=== PATIENT | female | born 1945 | race Caucasian/White ===

== ENCOUNTER 2017-10-31 00:13 | Day surgery (SDC) | payer MEDICARE, MEDICAID ==
[2014-08-06 13:09] VITALS: Ht 157.5 cm; Wt 81.2 kg
[~2017-10-31] VITALS: Ht 157.5 cm; Wt 81.2 kg
[2017-10-31] VITALS (9 sets, daily range): BP systolic 103–133; BP diastolic 51–75
[~2017-10-31 00:13] MED LIST: ACE500 PO; ACET-2043 PO; ACET500T68 PO; ALB17R INH; ARTO15 OU; ASC500 PO; ASCO500C9 PO; AZEL6DRO9 OP; AZIT500T47 PO; BUPR-121 PO; BUPR-123 PO; BUPR-124 PO; BUPR-163 PO; CALC250T7 PO; CALC600T72 PO; CEF300 PO; CEFU250 PO; CEP500 PO; CHOL10005 PO; CLOZ100 PO; CLOZ100T14 PO; CLOZ50TA PO; CYA1000I IM; DOCU-299 PO; ESOM40CA42 PO; FER325 PO; FOR12R INH; GAB100 PO; GAB300 PO; GLUC500C29 PO; GUAI600T57 PO; GUALA600 PO; HYDROCODONE PO; IBU600 PO; LETPT PO; LEVO500T83 PO; LEVO75TA68 PO; LEVO75TA73 PO; LOP2 PO; LOPE-147 PO; LOPE2CAP39 PO; LOR5 PO; LOR5/325 PO; MELO-149 PO; MELO-150 PO; MELO-207 PO; MEMA10TA19 PO; MEMA10TA3 PO; MIR PO; MULT-885 PO; MULT1CAP41 PO; OMEP-125 PO; OMEP-153 PO; OXYGEN INH; PAN40 PO; PANTOPRAZOLE PO; POLY17PO25 PO; PSYL1PAC23 PO; SERT25TA87 PO; SERT25TA90 PO; SULF-198 PO; SYSTANODPT OP; TIO18R IH; TIO18R INH; TRAM-420 PO; [UNRECOGNIZED DRUG - CODE] PO; [UNRECOGNIZED DRUG - CODE] PO; [UNRECOGNIZED DRUG - CODE] PO; oxygen
[2017-10-31 06:15] LABS: PLATELET COUNT, AUTOMATED 183 K/uL (150-450)
[2017-10-31] MEDS ORDERED: MIDAZOLAM 2 MG/2 ML VIAL IVP PRN (06:30)
[2017-10-31] MEDS ORDERED: LIDOCAINE/SOD BICARB 8.4% SYR ID ONE (06:30)
[2017-10-31] MEDS ORDERED: NORMOSOL R SOLN(*) 1000 ML BAG 1,000 ML IV PRN (06:30)
[2017-10-31] MEDS ORDERED: ROPIVACAINE 0.2% 20 ML VIAL ONE (06:54)
[2017-10-31] MEDS ORDERED: fentaNYL CITR 100 MCG/2 ML AMP ONE (06:56)
[2017-10-31] MEDS ORDERED: LIDOCAINE MPF 1% 5 ML VIAL ONE (06:57)
[2017-10-31] MEDS ORDERED: DEXAMETHASONE SOD PHOS 10MG/ML ONE (06:57)
[2017-10-31] MEDS ORDERED: ONDANSETRON 4 MG/2 ML VIAL ONE (06:57)
[2017-10-31] MEDS ORDERED: PROPOFOL EMUL(*) 10MG/ML 20 ML 20 ML ONE (06:57)
[2017-10-31] MEDS ORDERED: DEXAMETHASONE SOD 4 MG/ML VIAL ONE (06:58)
[2017-10-31] MEDS ORDERED: LIDOCAINE 2% JELLY 5 ML TUBE ONE (06:59)
[2017-10-31] MEDS ORDERED: NS 0.9% IRRIGATION 1000ML PLCT IR ONE (07:41)
--- NOTE | 2017-10-31 08:11 | Post Operative Progress Note ---
Post Operative Progress Note Date: Oct 31, 2017 Time: 08:09 Surgeon: wendy Anesthesia: dr silva Pre-Op Diagnosis: 3.2 cm by 2.9 cm skin lesion inferior to the medial head of the right clavicle Post-Op Diagnosis: same Procedure(s): wide excision of skin tumor KENJI SCHMITZ MD Oct 31, 2017 08:11
[2017-10-31] MEDS ORDERED: HYDR-4309 PO (08:12)
--- NOTE | 2017-10-31 08:13 | Short(Outpt) Discharge Summary ---
Discharge Summary Reason for Hosp/Final Diag: (1) Skin cancer of trunk Hospital Course & Plan: wide excision of 3.2 cm by 2.9 cm skin lesion right anterior chest Departure Discharge to: Home Discharge Instructions Home Meds Active Scripts Hydrocodone Bit/Acetaminophen (NORCO 5-325 TABLET) 1 Each Tablet, 1 EACH PO Q4H Y for PAIN, #20 TAB Prov:KENJI SCHMITZ MD 10/31/17 Reported Medications Tiotropium [place] (SPIRIVA) 18 Mcg/Cap Inh, 18 MCG INH PRN, INH 10/26/17 Omeprazole (OMEPRAZOLE) 20 Mg Capsule.dr, 1 CAP PO QDAY, CAP 10/26/17 Memantine HCl 10 MG (Memantine HCl 10 MG) 10 Mg Tablet, 10 MG PO BID 10/26/17 Meloxicam (MOBIC) 15 Mg Tablet, 15 MG PO QDAY 10/26/17 Letrozole (FEMARA) 2.5 Mg Tab, 2.5 MG PO DAILY, TAB 10/26/17 Cholecalciferol (Vitamin D3) (VITAMIN D3) 1,000 Unit Tablet, 1000 UNIT PO DAILY , TAB 10/26/17 Bupropion Hcl (BUPROPION XL) 150 Mg Tab.er.24h, 150 MG PO QDAY, #10 TAB 10/26/17 Azelastine Hcl (AZELASTINE HCL) 6 Ml Drops, 6 ML OP 10/26/17 Acetaminophen (TYLENOL EXTRA STRENGTH) 500 Mg Tablet, 500 MG PO Q4H Y for PAIN, TAB 09/18/17 Tramadol Hcl (TRAMADOL HCL) 50 Mg Tablet, 50 MG PO HS Y for PAIN, TAB 09/18/17 Levothyroxine Sodium (LEVOTHYROXINE SODIUM) 75 Mcg Tablet, 75 MCG PO QDAY, TAB 09/18/17 Sertraline Hcl (SERTRALINE HCL) 25 Mg Tablet, 1 TAB PO QDAY, TAB 09/18/17 Gabapentin (Neurontin) 300 Mg Cap, 300 MG PO TID, 0 Refills 02/08/11 Clozapine (Clozapine) 50 Mg Tablet, 100 MG PO QDAY, 0 Refills 02/08/11 Diet: Regular Activity: As Tolerated Special Instructions: remove bandage and shower to see me in one week, call [phone] for apt KENJI SCHMITZ MD Oct 31, 2017 08:13
--- NOTE | 2017-10-31 14:06 | NACHTIGAL H&P ---
DATE OF ADMISSION: October 31, 2017 CHIEF COMPLAINT Lesion on the right clavicular area. 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 She presents with a large skin lesion over the right medial clavicle. It is difficult to get any history from this patient as far as how long it has been there. We had difficulty with her initial schedule because of finding a person to sign for her surgical permit, but that has been taken care of. She is admitted at this time for excision of this lesion. PAST MEDICAL HISTORY/OPERATIONS She had excision of a skin cancer of the lip and a right mastectomy. ALLERGIES PENICILLIN. CURRENT MEDICATIONS 1. Vitamin C. 2. Spiriva inhaler. 3. Omeprazole 20 mg daily. 4. Namenda 10 mg b.i.d. 5. Multivitamin. 6. Mobic 15 mg a day. 7. Gabapentin 300 mg b.i.d. 8. Femara 2.5 mg daily. 9. Sertraline 25 mg nightly. 10. Cholecalciferol 1000 units a day. 11. Calcium bupropion 150 mg daily. 12. Azelastine ophthalmic drops twice a day. REVIEW OF SYSTEMS Significant for a history of schizophrenia, dementia, bipolar disorder. She also has hypertension and COPD. PHYSICAL EXAMINATION LUNGS: Clear. HEART: Regular rhythm. SKIN: She has a 2.3 cm x 1.3 cm raised, ulcerated, firm skin lesion just inferior the medial clavicle on the right. IMPRESSION Skin lesion of the right chest. PLAN This is highly suspicious for cancer. We will excised this with a margin of normal tissue and reapproximate it. [facility]
--- NOTE | 2017-10-31 14:34 | OPERATIVE REPORT 1 ---
EVENT DATE: October 31, 2017 SURGEON: Du Black MD ANESTHESIOLOGIST: Jose Bautista MD ANESTHESIA: General. PREOPERATIVE DIAGNOSIS A 3.2 cm x 2.9 cm, raised, fungating skin lesion inferior to the medial head of the right scapula. POSTOPERATIVE DIAGNOSIS A 3.2 cm x 2.9 cm, raised, fungating skin lesion inferior to the medial head of the right scapula. PROCEDURE PERFORMED Wide excision of skin lesion, right anterior chest. DESCRIPTION OF PROCEDURE The patient was placed in the supine position and given general anesthetic. Her right chest and neck were prepped and draped in a sterile fashion. An elliptical incision following skin lines was made with a 0.5 cm margin. We carried it down through skin and subcutaneous tissue all the way down to the level of the fascia and excised this skin lesion. We then freed up the flaps with electrocautery and the subcutaneous tissue. We injected 20 mL of 0.2% ropivacaine in the muscle and subcutaneous tissues. The subcutaneous tissues were reapproximated with 2-0 chromic. The skin was closed with interrupted 4-0 Maxon,and Dermabond was placed. The patient tolerated the procedure well with no apparent complication. LUDWIG
== END 2017-10-31 08:53 | disposition home or self-care (01) ==
LOC: OR 00:13
PROVIDERS: ATTEND Surgery
DX: C41.3 Malignant neoplasm of ribs, sternum and clavicle (principal)
CPT/HCPCS: 23140; 36415; 85025; 88305; A9270; J1100; J2001; J2405; J2704; J2795; J3010

== ENCOUNTER → 2017-11-24 | Outpatient (CLI) | payer MEDICARE, MEDICAID ==
[2014-08-06 13:09] VITALS: BMI 33.0
[~2017-11-24] MED LIST changes: +HYDR-4309 PO
[2017-11-24 14:56] LABS: LDL CHOLESTEROL 34 mg/dl
== END ==
LOC: LAB 13:45
PROVIDERS: ATTEND Family Medicine
DX: E03.9 Hypothyroidism, unspecified (principal); F31.9 Bipolar disorder, unspecified; F32.9 Major depressive disorder, single episode, unspecified; J44.1 Chronic obstructive pulmonary disease with (acute) exacerbation; K21.9 Gastro-esophageal reflux disease without esophagitis; L57.0 Actinic keratosis; M12.9 Arthropathy, unspecified; M54.30 Sciatica, unspecified side; S23.9XXA Sprain of unspecified parts of thorax, initial encounter; Z79.891 Long term (current) use of opiate analgesic; Z85.3 Personal history of malignant neoplasm of breast; F02.81 Dementia in other diseases classified elsewhere, unspecified severity, with behavioral disturbance; F91.9 Conduct disorder, unspecified; F20.9 Schizophrenia, unspecified
CPT/HCPCS: 36415; 82040; 82310; 82374; 82435; 82465; 82565; 82947; 83718; 84100; 84132; 84295; 84478; 84520

== ENCOUNTER → 2017-12-22 | Outpatient (CLI) | payer MEDICARE, MEDICAID ==
[2014-08-06 13:09] VITALS: BMI 33.0
== END ==
LOC: ZZSENDIN 11:48
PROVIDERS: ATTEND Family Medicine
DX: F31.9 Bipolar disorder, unspecified (principal)
CPT/HCPCS: 85027

== ENCOUNTER → 2017-12-28 | Outpatient (REF) | payer MEDICARE, MEDICAID ==
[2014-08-06 13:09] VITALS: BMI 33.0
[2017-12-28 14:27] LABS: PLATELET COUNT, AUTOMATED 166 K/uL (150-450)
== END ==
LOC: ZZLCC 10:48
PROVIDERS: ATTEND Family Medicine
DX: E03.9 Hypothyroidism, unspecified (principal)
CPT/HCPCS: 85025

== ENCOUNTER → 2018-01-23 | Outpatient (CLI) | payer MEDICARE, MEDICAID ==
[2014-08-06 13:09] VITALS: BMI 33.0
[2018-01-23 10:06] LABS: PLATELET COUNT, AUTOMATED 144 K/uL (150-450)
== END ==
LOC: LAB 09:31
PROVIDERS: ATTEND Family Medicine
DX: Z79.899 Other long term (current) drug therapy (principal)
CPT/HCPCS: 36415; 85025

== ENCOUNTER → 2018-02-21 | Outpatient (CLI) | payer MEDICARE, MEDICAID ==
[2014-08-06 13:09] VITALS: BMI 33.0
[2018-02-21 10:09] LABS: PLATELET COUNT, AUTOMATED 182 K/uL (150-450)
== END ==
LOC: LAB 09:52
PROVIDERS: ATTEND Family Medicine
DX: Z79.899 Other long term (current) drug therapy (principal)
CPT/HCPCS: 36415; 85025

== ENCOUNTER → 2018-03-23 | Outpatient (CLI) | payer MEDICARE, MEDICAID ==
[2014-08-06 13:09] VITALS: BMI 33.0
[2018-03-23 15:11] LABS: PLATELET COUNT, AUTOMATED 160 K/uL (150-450)
== END ==
LOC: LAB 14:41
PROVIDERS: ATTEND Family Medicine
DX: E03.9 Hypothyroidism, unspecified (principal); Z79.899 Other long term (current) drug therapy; F20.9 Schizophrenia, unspecified; F31.9 Bipolar disorder, unspecified
CPT/HCPCS: 36415; 85025

== ENCOUNTER → 2018-04-26 | Outpatient (CLI) | payer MEDICARE, MEDICAID ==
[2014-08-06 13:09] VITALS: BMI 33.0
[2018-04-26 09:43] LABS: PLATELET COUNT, AUTOMATED 177 K/uL (150-450)
== END ==
LOC: LAB 09:25
PROVIDERS: ATTEND Family Medicine
DX: F20.0 Paranoid schizophrenia (principal); F31.9 Bipolar disorder, unspecified; Z79.899 Other long term (current) drug therapy
CPT/HCPCS: 36415; 85025

== ENCOUNTER → 2018-05-26 | Outpatient (REF) | payer MEDICARE, MEDICAID ==
[2014-08-06 13:09] VITALS: BMI 33.0
[2018-05-26 11:57] LABS: PLATELET COUNT, AUTOMATED 184 K/uL (150-450)
== END ==
LOC: ZZLCC 11:43
PROVIDERS: ATTEND Family Medicine
DX: F20.9 Schizophrenia, unspecified (principal); F31.9 Bipolar disorder, unspecified; E03.9 Hypothyroidism, unspecified; L57.0 Actinic keratosis; Z85.3 Personal history of malignant neoplasm of breast; Z79.899 Other long term (current) drug therapy
CPT/HCPCS: 85025

== ENCOUNTER 2018-06-22 14:51 | Inpatient (IN) | payer MEDICARE, MEDICAID ==
[~2018-06-22] VITALS: Ht 154.9 cm; Wt 70.5 kg
[~2018-06-22 14:51] MED LIST changes: -ASPI-764 PO; -NYST15PO4 TP; -SERT-184 PO
--- NOTE | 2018-06-22 15:16 | ER Report ---
History and Physical Time Seen By MD: 15:15 Hx. of Stated Complaint: FALL AT [facility]F LAST NIGHT, + RIGHT HIP FX PER RADIOLOGY HPI/ROS CHIEF COMPLAINT: hip fx post fall HISTORY OF PRESENT ILLNESS: PT lives in [facility] and is unable to give me a hx secondary to dementia and schizophrenia. Called [facility] and spoke with Zina her nurse. 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 Pt was sitting in her chair and went to get up and fell down onto her side. Pt did not hit her head. Staff was unsure if she tripped on the edge of her walker or if she fell without hitting the walker. PT usually ambulates with walker. Pt currently has no complaints but has obvious pain with any movement of the pelvis. REVIEW OF SYSTEMS: unable to obtain secondary to pts dementia and psych history. Allergies: Coded Allergies: Penicillins (Verified Allergy, Unknown, 06/22/18) Uncoded Allergies: LACTOSE INTOLERANCE (Allergy, Mild, 09/18/17) Home Meds Active Scripts Hydrocodone Bit/Acetaminophen (NORCO 5-325 TABLET) 1 Each Tablet, 1 EACH PO Q4H PRN for PAIN, #20 TAB Prov:KENJI SCHMITZ MD 10/31/17 Reported Medications Tiotropium [place] (SPIRIVA) 18 Mcg/Cap Inh, 18 MCG INH PRN, INH 10/26/17 Omeprazole (OMEPRAZOLE) 20 Mg Capsule.dr, 1 CAP PO QDAY, CAP 10/26/17 Memantine HCl 10 MG (Memantine HCl 10 MG) 10 Mg Tablet, 10 MG PO BID 10/26/17 Meloxicam (MOBIC) 15 Mg Tablet, 15 MG PO QDAY 10/26/17 Letrozole (FEMARA) 2.5 Mg Tab, 2.5 MG PO DAILY, TAB 10/26/17 Cholecalciferol (Vitamin D3) (VITAMIN D3) 1,000 Unit Tablet, 1000 UNIT PO DAILY, TAB 10/26/17 Bupropion Hcl (BUPROPION XL) 150 Mg Tab.er.24h, 150 MG PO QDAY, #10 TAB 10/26/17 Azelastine Hcl (AZELASTINE HCL) 6 Ml Drops, 6 ML OP 10/26/17 Acetaminophen (TYLENOL EXTRA STRENGTH) 500 Mg Tablet, 500 MG PO Q4H PRN for PAIN, TAB 09/18/17 Tramadol Hcl (TRAMADOL HCL) 50 Mg Tablet, 50 MG PO HS PRN for PAIN, TAB 09/18/17 Levothyroxine Sodium (LEVOTHYROXINE SODIUM) 75 Mcg Tablet, 75 MCG PO QDAY, TAB 09/18/17 Sertraline Hcl (SERTRALINE HCL) 25 Mg Tablet, 1 TAB PO QDAY, TAB 09/18/17 Gabapentin (Neurontin) 300 Mg Cap, 300 MG PO TID, 0 Refills 02/08/11 Clozapine (Clozapine) 50 Mg Tablet, 100 MG PO QDAY, 0 Refills 02/08/11 Past Medical/Surgical History pmhx: schizophrenia, dementia, cellulitis, bioplar, hypothyroid, sciatica Reviewed Nurses Notes: Yes Hx Smoking: No Smoking Status: Former Smoker Exposure to Second Hand Smoke?: No Hx Substance Use Disorder: No (Patient unable to answer question.) Hx Alcohol Use: No Constitutional Vital Sign - Last 24 Hours 06/22/18 06/22/18 06/22/18 06/22/18 14:51 14:56 14:58 15:06 Temp 99.5 Pulse ??? 86 88 Resp 18 13 B/P (MAP) 123/69 (87) 123/69 Pulse Ox 86 96 O2 Delivery Room Air 06/22/18 06/22/18 06/22/18 06/22/18 15:21 15:36 15:51 16:06 Pulse 92 88 83 84 Resp 22 13 17 17 Pulse Ox 98 93 100 98 06/22/18 06/22/18 06/22/18 16:21 16:26 16:26 Pulse 83 85 85 Resp 17 17 17 Pulse Ox 99 100 100 Physical Exam General Appearance: The patient is alert, has no immediate need for airway protection and no signs of toxicity. Eyes: Pupils equal and round no pallor or injection, EOMI ENT: no pharyngeal erythema or exudates, Mucous membranes are moist Respiratory: There are no retractions, lungs are clear to auscultation. Cardiovascular: Regular rate and rhythm. pulses are equal and symmetrical Gastrointestinal: Abdomen is soft and non tender, no masses, bowel sounds normal, no guarding, no rigidity or rebound Neurological: Cranial nerves II-XII grossly intact, no sensory or motor loss Skin: Warm and dry, no rashes. Musculoskeletal: Neck is supple non tender, no vertebral tenderness, no significant leg shortening. + tenderness R greater trocanter DIFFERENTIAL DIAGNOSIS: After history and physical exam differential diagnosis was considered for hip fx Medical Decision Making Data Points Result Diagram: 06/22/18 1520 06/22/18 1520 Laboratory Hematology Test 06/22/18 15:20 06/22/18 15:32 Red Blood Count 4.30 M/uL (4.17-5.56) Mean Corpuscular Volume 95.6 fL (80.0-96.0) Mean Corpuscular Hemoglobin 32.2 pg (26.0-33.0) Mean Corpuscular Hemoglobin Concent 33.7 g/dL (32.0-36.0) Red Cell Distribution Width 13.9 % (11.5-14.5) Mean Platelet Volume 9.4 fL (7.2-11.1) Neutrophils (%) (Auto) 79.2 % (39.4-72.5) Lymphocytes (%) (Auto) 11.6 % (17.6-49.6) Monocytes (%) (Auto) 9.0 % (4.1-12.4) Eosinophils (%) (Auto) 0.0 % (0.4-6.7) Basophils (%) (Auto) 0.2 % (0.3-1.4) Nucleated RBC Relative Count (auto) 0.0 /100WBC Neutrophils # (Auto) 8.9 K/uL (2.0-7.4) Lymphocytes # (Auto) 1.3 K/uL (1.3-3.6) Monocytes # (Auto) 1.0 K/uL (0.3-1.0) Eosinophils # (Auto) 0.0 K/uL (0.0-0.5) Basophils # (Auto) 0.0 K/uL (0.0-0.1) Nucleated RBC Absolute Count (auto) 0.00 K/uL Prothrombin Time 13.3 seconds (12.0-14.4) Prothromb Time International Ratio 1.01 Activated Partial Thromboplast Time 42 seconds (23-35) Sodium Level 145 mmol/L (137-145) Potassium Level 3.4 mmol/L (3.5-5.0) Chloride Level 105 mmol/L (98-107) Carbon Dioxide Level 28 mmol/L (22-31) Blood Urea Nitrogen 19 mg/dl (7-18) Creatinine 0.70 mg/dl (0.52-1.04) Glomerular Filtration Rate Calc > 60.0 Random Glucose 136 mg/dl (75-110) Calcium Level 9.3 mg/dl (8.4-10.2) Total Bilirubin 1.1 mg/dl (0.2-1.3) Aspartate Amino Transf (AST/SGOT) 23 U/L (0-35) Alanine Aminotransferase (ALT/SGPT) 25 U/L (0-56) Alkaline Phosphatase 58 U/L (0-126) Total Protein 6.2 g/dl (6.3-8.2) Albumin 3.7 g/dl (3.5-5.0) Urine Color Joan Urine Clarity Slightly-cloudy Urine pH 5.0 pH (4.8-9.5) Urine Specific [place] 1.026 Urine Protein 30 mg/dL (NEGATIVE) Urine Glucose (UA) Negative mg/dL (NEGATIVE) Urine Ketones Trace mg/dL (NEGATIVE) Urine Blood Negative (NEGATIVE) Urine Nitrite Negative (NEGATIVE) Urine Bilirubin Negative (NEGATIVE) Urine Urobilinogen 2.0 mg/dL (0.2-1.9) Urine Leukocyte Esterase Negative (NEGATIVE) Urine RBC 2 /HPF (0-2/HPF) Urine WBC 12 /HPF (0-5/HPF) Urine Squamous Epithelial Cells Many /LPF (NONE-FEW) Urine Transitional Epithelial Cells Many /LPF (NONE-FEW) Urine Calcium Oxalate Crystals Few /HPF (NONE) Urine Bacteria Negative /HPF (NONE-FEW) Urine Mucus Few /HPF (NONE-FEW) Chemistry Test 06/22/18 15:20 06/22/18 15:32 White Blood Count 11.3 k/uL (4.5-11.0) Red Blood Count 4.30 M/uL (4.17-5.56) Hemoglobin 13.8 g/dL (12.0-16.0) Hematocrit 41.1 % (34.0-47.0) Mean Corpuscular Volume 95.6 fL (80.0-96.0) Mean Corpuscular Hemoglobin 32.2 pg (26.0-33.0) Mean Corpuscular Hemoglobin Concent 33.7 g/dL (32.0-36.0) Red Cell Distribution Width 13.9 % (11.5-14.5) Platelet Count 141 K/uL (150-450) Mean Platelet Volume 9.4 fL (7.2-11.1) Neutrophils (%) (Auto) 79.2 % (39.4-72.5) Lymphocytes (%) (Auto) 11.6 % (17.6-49.6) Monocytes (%) (Auto) 9.0 % (4.1-12.4) Eosinophils (%) (Auto) 0.0 % (0.4-6.7) Basophils (%) (Auto) 0.2 % (0.3-1.4) Nucleated RBC Relative Count (auto) 0.0 /100WBC Neutrophils # (Auto) 8.9 K/uL (2.0-7.4) Lymphocytes # (Auto) 1.3 K/uL (1.3-3.6) Monocytes # (Auto) 1.0 K/uL (0.3-1.0) Eosinophils # (Auto) 0.0 K/uL (0.0-0.5) Basophils # (Auto) 0.0 K/uL (0.0-0.1) Nucleated RBC Absolute Count (auto) 0.00 K/uL Prothrombin Time 13.3 seconds (12.0-14.4) Prothromb Time International Ratio 1.01 Activated Partial Thromboplast Time 42 seconds (23-35) Glomerular Filtration Rate Calc > 60.0 Calcium Level 9.3 mg/dl (8.4-10.2) Total Bilirubin 1.1 mg/dl (0.2-1.3) Aspartate Amino Transf (AST/SGOT) 23 U/L (0-35) Alanine Aminotransferase (ALT/SGPT) 25 U/L (0-56) Alkaline Phosphatase 58 U/L (0-126) Total Protein 6.2 g/dl (6.3-8.2) Albumin 3.7 g/dl (3.5-5.0) Urine Color Joan Urine Clarity Slightly-cloudy Urine pH 5.0 pH (4.8-9.5) Urine Specific [place] 1.026 Urine Protein 30 mg/dL (NEGATIVE) Urine Glucose (UA) Negative mg/dL (NEGATIVE) Urine Ketones Trace mg/dL (NEGATIVE) Urine Blood Negative (NEGATIVE) Urine Nitrite Negative (NEGATIVE) Urine Bilirubin Negative (NEGATIVE) Urine Urobilinogen 2.0 mg/dL (0.2-1.9) Urine Leukocyte Esterase Negative (NEGATIVE) Urine RBC 2 /HPF (0-2/HPF) Urine WBC 12 /HPF (0-5/HPF) Urine Squamous Epithelial Cells Many /LPF (NONE-FEW) Urine Transitional Epithelial Cells Many /LPF (NONE-FEW) Urine Calcium Oxalate Crystals Few /HPF (NONE) Urine Bacteria Negative /HPF (NONE-FEW) Urine Mucus Few /HPF (NONE-FEW) Coagulation Test 06/22/18 15:20 Prothrombin Time 13.3 seconds Prothromb Time International Ratio 1.01 Activated Partial Thromboplast Time 42 seconds Urinalysis Test 06/22/18 15:32 Urine Color Joan Urine Clarity Slightly-cloudy Urine pH 5.0 pH (4.8-9.5) Urine Specific [place] 1.026 Urine Protein 30 mg/dL (NEGATIVE) Urine Glucose (UA) Negative mg/dL (NEGATIVE) Urine Ketones Trace mg/dL (NEGATIVE) Urine Blood Negative (NEGATIVE) Urine Nitrite Negative (NEGATIVE) Urine Bilirubin Negative (NEGATIVE) Urine Urobilinogen 2.0 mg/dL (0.2-1.9) Urine Leukocyte Esterase Negative (NEGATIVE) Urine RBC 2 /HPF (0-2/HPF) Urine WBC 12 /HPF (0-5/HPF) Urine Squamous Epithelial Cells Many /LPF (NONE-FEW) Urine Transitional Epithelial Cells Many /LPF (NONE-FEW) Urine Calcium Oxalate Crystals Few /HPF (NONE) Urine Bacteria Negative /HPF (NONE-FEW) Urine Mucus Few /HPF (NONE-FEW) EKG/Imaging EKG Interpretation nsr @ 85 with lad Imaging Transverse fx thru the r femoral neck with superior displacement. ED Course/Re-evaluation Clinical Indication for ER IV: IV Access ED Course check labs. call ortho when labs are back. 06/22/2018 3:55:49 pm Pts potassium is 3.4. will give 20meq as K-rider. Page out to orthopedics. 06/22/2018 4:15:34 pm repage to orthopedics. 06/22/2018 4:27:[address] jerome who will due surgery tomorrow but would like medicine to admit the patient. He will be in the ED in the next 15 minutes to evaluate pt. 06/22/2018 4:29:[address] Weaver to admit. 06/22/2018 4:59:[address] Jerome evaluated pt. has her on schedule for surgery tomorrow morning Decision to Disposition Date: Jun 22, 2018 Decision to Disposition Time: 16:29 Depart Departure Latest Vital Signs Vital Signs Date Time Temp Pulse Resp B/P (MAP) Pulse Ox O2 Delivery O2 Flow Rate FiO2 06/22/18 16:26 85 17 100 06/22/18 14:58 99.5 123/69 Room Air Impression: Primary Impression: Femoral neck fracture Condition: Stable Disposition: Admitted from ER Referrals: FRANDY SOTO MD (PCP) Problem Qualifiers Primary Impression: Femoral neck fracture Encounter type: initial encounter Fracture type: closed Laterality: right Qualified Codes: S72.001A - Fracture of unspecified part of neck of right femur, initial encounter for closed fracture MAGDA FERNANDO DO Jun 22, 2018 15:16
--- NOTE | 2018-06-22 15:28 | RADIOLOGY IMAGING REPORT ---
[place] [facility] [place] NAME: Mariaelena Humphreys : 1945 MR: [id number] V: [id number] EXAM DATE: ORDERING PHYSICIAN: SOLEDAD WAGNER TECHNOLOGIST: Location: [facility] [place] Patient: Mariaelena Humphreys : 1945 Visit/Account:[id number] Date of Sevice: 06/22/2018 Exam type: HIP RIGHT History: Fall Comparison: None. Findings: There is a fracture through the right femoral neck with superior displacement of the right femoral sh aft. The patient was taken to the emergency room for evaluation IMPRESSION: 1. Transverse fracture through the right femoral neck with superior displacement of the right femora l shaft Report Dictated By: Chiara Augustine MD at 06/22/2018 3:18 PM Report E-Signed By: Chiara Augustine MD at 06/22/2018 3:25 PM [id number]
[2018-06-22 15:35] LABS: PLATELET COUNT, AUTOMATED 141 K/uL (150-450)
[2018-06-22] MEDS ORDERED: KCL (*) 20 MEQ/100 ML PREMIX 100 ML IV ONE (15:45)
[2018-06-22 15:46] LABS: INR 1.01
--- NOTE | 2018-06-22 16:15 | RADIOLOGY IMAGING REPORT ---
FACILITY: [facility] [place] PATIENT NAME: Mariaelena Humphreys : 1945 MR: [id number] V: [id number] EXAM DATE: ORDERING PHYSICIAN: MAGDA FERNANDO TECHNOLOGIST: Location: [facility] [place] Patient: Mariaelena Humphreys : 1945 Visit/Account:[id number] Date of Sevice: 06/22/2018 Study: Single portable view of the chest. Indication: Preop Comparison study: August 05, 2014 Technique: Single AP view of the chest demonstrates no evidence of acute infiltrate. There is no evid ence of pleural effusion or pneumothorax. The mediastinal, cardiac, and diaphragmatic contours are un remarkable. The patient is status post right axillary dissection. IMPRESSION: No acute cardiopulmonary abnormality. Report Dictated By: Jonnathan Rosenthal at 06/22/2018 4:11 PM Report E-Signed By: Jonnathan Rosenthal at 06/22/2018 4:11 PM WSN:[id number]
--- NOTE | 2018-06-22 16:40 | EKG ---
FACILITY: PATIENT NAME: ALBERTO ROUSSEAU : [id number] MR: [id number] V: [id number] EXAM DATE: ORDERING PHYSICIAN: MAGDA FERNANDO TECHNOLOGIST: RODOLFO Test Reason : PRE OP HIP Blood Pressure : / mmHG Vent. Rate : 085 BPM Atrial Rate : 085 BPM P-R Int : 164 ms QRS Dur : 086 ms QT Int : 396 ms P-R-T Axes : 107 -39 057 degrees QTc Int : 471 ms Normal sinus rhythm Left axis deviation Pulmonary disease pattern Abnormal ECG When compared with ECG of 05-AUG-2014 15:05, No significant change was found Confirmed by DONOVAN DONOVAN ([id number]) on 06/22/2018 7:40:17 PM Referred By: KASSIE Confirmed By:DONOVAN DONOVAN
[2018-06-22 17:48] VITALS: BP 108/97
--- NOTE | 2018-06-22 18:58 | History & Physical ---
History of Present Illness Chief Complaint Hip pain History of Present Illness This patient presented to the emergency room [facility] She was complaining of pain in the right hip. History Problems: (1) Schizophrenia Status: Chronic (2) COPD (chronic obstructive pulmonary disease) Status: Chronic (3) Breast cancer, right Status: Resolved (4) S/P mastectomy Status: Resolved Home Meds Active Scripts Hydrocodone Bit/Acetaminophen (NORCO 5-325 TABLET) 1 Each Tablet, 1 EACH PO Q4H PRN for PAIN, #20 TAB Prov:KENJI SCHMITZ MD 10/31/17 Reported Medications Tiotropium [place] (SPIRIVA) 18 Mcg/Cap Inh, 18 MCG INH PRN, INH 10/26/17 Omeprazole (OMEPRAZOLE) 20 Mg Capsule.dr, 1 CAP PO QDAY, CAP 10/26/17 Memantine HCl 10 MG (Memantine HCl 10 MG) 10 Mg Tablet, 10 MG PO BID 10/26/17 Meloxicam (MOBIC) 15 Mg Tablet, 15 MG PO QDAY 10/26/17 Letrozole (FEMARA) 2.5 Mg Tab, 2.5 MG PO DAILY, TAB 10/26/17 Cholecalciferol (Vitamin D3) (VITAMIN D3) 1,000 Unit Tablet, 1000 UNIT PO DAILY, TAB 10/26/17 Bupropion Hcl (BUPROPION XL) 150 Mg Tab.er.24h, 150 MG PO QDAY, #10 TAB 10/26/17 Azelastine Hcl (AZELASTINE HCL) 6 Ml Drops, 6 ML OP 10/26/17 Acetaminophen (TYLENOL EXTRA STRENGTH) 500 Mg Tablet, 500 MG PO Q4H PRN for PAIN, TAB 09/18/17 Tramadol Hcl (TRAMADOL HCL) 50 Mg Tablet, 50 MG PO HS PRN for PAIN, TAB 09/18/17 Levothyroxine Sodium (LEVOTHYROXINE SODIUM) 75 Mcg Tablet, 75 MCG PO QDAY, TAB 09/18/17 Sertraline Hcl (SERTRALINE HCL) 25 Mg Tablet, 1 TAB PO QDAY, TAB 09/18/17 Gabapentin (Neurontin) 300 Mg Cap, 300 MG PO TID, 0 Refills 02/08/11 Clozapine (Clozapine) 50 Mg Tablet, 100 MG PO QDAY, 0 Refills 02/08/11 Allergies: Coded Allergies: Penicillins (Verified Allergy, Unknown, 06/22/18) Uncoded Allergies: LACTOSE INTOLERANCE (Allergy, Mild, 09/18/17) Hx Smoking: No Smoking Status: Former Smoker Exposure to Second Hand Smoke?: No Caffeine/Cups Per Day: OCC Hx Alcohol Use: No Hx Substance Use Disorder: No Review of Systems All Systems Reviewed/Normal: Yes, Except as Noted Musculoskeletal: Pain Exam Vital Signs Vital Signs Date Time Temp Pulse Resp B/P (MAP) Pulse Ox O2 Delivery O2 Flow Rate FiO2 06/22/18 18:05 96 Nasal Cannula 2.0 06/22/18 17:48 98.1 94 16 108/97 (101) Neuro: No Gross deficits Eyes: PERRLA Cardiovascular: Regular Rate and Rhythm Respiratory: Clear to Auscultation GI: Abd Soft and Non-Tender Extremities: No Edema Integumentary: No Cyanosis Medical Decision Making Data Points Result Diagram: 06/22/18 1520 06/22/18 1520 EKG / Imaging EKG Interpretation EKG reviewed. Imaging Chest and hip x-rays reviewed. Assessment and Plan Problems: (1) Femoral neck fracture Status: Acute Assessment & Plan: She is scheduled for operative repair with Dr. Arce tomorrow. She will require postoperative DVT prophylaxis. (2) Schizophrenia Status: Chronic Assessment & Plan: She is on chronic treatment with clozapine, bupropion, gabapentin, and sertraline. (3) COPD (chronic obstructive pulmonary disease) Status: Chronic Assessment & Plan: She is on chronic treatment with Spiriva. (4) Breast cancer, right Status: Resolved Assessment & Plan: She is on chronic treatment with Femara. She also has a history of mastectomy. (5) Elevated LFTs Status: Acute Assessment & Plan: This appears to be a long standing issue dating back to 2013. Copies to: TERRY CASTANEDA DO ; Venous Thromboembolism Antithrombotics Is Pt On Any Antithrombotics?: No Exam Sepsis Risk: No Definite Risk Problem Qualifiers (1) Femoral neck fracture: Encounter type: initial encounter Fracture type: closed Laterality: right Qualified Codes: S72.001A - Fracture of unspecified part of neck of right femur, initial encounter for closed fracture DONOVAN DONOVAN DO Jun 22, 2018 18:58
[2018-06-22] MEDS ORDERED: NYST15PO4 TP (19:09)
[2018-06-22] MEDS ORDERED: SERT-184 PO (19:09)
[2018-06-22] MEDS ORDERED: CLOZ100 PO (19:22)
[2018-06-22] MEDS ORDERED: NORMOSOL R SOLN(*) 1000 ML BAG 1,000 ML IV PRN (19:35)
[2018-06-22] MEDS: GABAPENTIN 300 MG CAP PO SCH (20:11)
[2018-06-22] MEDS ORDERED: MEMANTINE HCL 10 MG TABLET PO SCH (21:00)
[2018-06-22] MEDS: MORPHINE 2 MG/ML SYR IVP PRN (23:28)
[2018-06-22 23:43] VITALS: BP 104/63
[2018-06-23] VITALS (22 sets, daily range): BP systolic 85–115; BP diastolic 53–81; Ht 154.9 cm; Wt 70.5 kg
[2018-06-23] MEDS: TIOTROPIUM BROM INH 18 MCG/CAP INH SCH (05:25)
[2018-06-23] MEDS: LEVOTHYROXINE SOD 0.075 MG TAB PO SCH (05:38)
[2018-06-23 06:35] LABS: PLATELET COUNT, AUTOMATED 122 K/uL (150-450)
[2018-06-23] MEDS ORDERED: FAMOTIDINE 20 MG TAB PO ONE (07:30)
[2018-06-23] MEDS ORDERED: NORMOSOL R SOLN(*) 1000 ML BAG 1,000 ML IV ONE (07:30)
[2018-06-23] MEDS ORDERED: FAMOTIDINE(*) 20MG/50ML PREMIX 50 ML IVPB ONE (07:35)
[2018-06-23] MEDS: MORPHINE 2 MG/ML SYR IVP PRN (07:42)
[2018-06-23] MEDS ORDERED: PROPOFOL EMUL(*) 10MG/ML 20 ML 20 ML ONE (08:48)
[2018-06-23] MEDS ORDERED: DEXAMETHASONE SOD 4 MG/ML VIAL ONE (08:48)
[2018-06-23] MEDS ORDERED: ONDANSETRON 4 MG/2 ML VIAL ONE (08:48)
[2018-06-23] MEDS ORDERED: fentaNYL CITR 100 MCG/2 ML AMP ONE (08:48)
[2018-06-23] MEDS ORDERED: LIDOCAINE MPF 1% 5 ML VIAL ONE (08:48)
[2018-06-23] MEDS ORDERED: KETAMINE HCL 200 MG/20 ML MDV ONE (08:52)
[2018-06-23] MEDS ORDERED: ROPIVACAINE 0.2% 20 ML VIAL ONE (08:53)
[2018-06-23] MEDS ORDERED: CLOZAPINE 100 MG TABLET PO SCH (09:00)
[2018-06-23] MEDS ORDERED: LETROZOLE 2.5 MG TAB PO SCH (09:00)
[2018-06-23] MEDS: SERTRALINE HCL 50 MG TAB PO SCH (09:00)
[2018-06-23] MEDS: PANTOPRAZOLE SOD 40 MG TABEC PO SCH (09:00)
[2018-06-23] MEDS ORDERED: buPROPion XL 150 MG TABCR PO SCH (09:00)
[2018-06-23] MEDS: GABAPENTIN 300 MG CAP PO SCH ×3 (09:00→21:00)
[2018-06-23] MEDS: CLOZAPINE 100 MG TABLET PO SCH ×3 (09:00→22:43)
[2018-06-23] MEDS ORDERED: SERTRALINE HCL 50 MG TAB PO SCH (09:00)
--- NOTE | 2018-06-23 09:55 | Hospitalist Progress Note ---
Subjective Progress Notes Subjective The patient is somnolent after receiving morphine. Physical Exam Vital Signs Date Time Temp Pulse Resp B/P (MAP) Pulse Ox O2 Delivery O2 Flow Rate FiO2 06/23/18 07:38 98.9 90 20 114/81 (92) 90 Nasal Cannula 5.0 Intake and Output 06/23/18 06:59 Intake Total 100 ml Output Total 150 ml Balance -50 ml Intake IV Total 100 ml Output Urine Total 150 ml # Bowel Movements 1 General Appearance: Other (Somnolent.) Cardiovascular: Regular Rate and Rhythm Respiratory: Clear to Auscultation GI: Soft and Non-Tender Extremities: Warm, Perfused Psych: Other (Sleeping.) Result Diagram: 06/23/1852506/23/18525 Assessment and Plan Problems: (1) Femoral neck fracture Status: Acute Assessment & Plan: She is scheduled for operative repair with Dr. Arce later today. She will require postoperative DVT prophylaxis. (2) Schizophrenia Status: Chronic Assessment & Plan: She is on chronic treatment with clozapine, bupropion, gabapentin, and sertraline. (3) COPD (chronic obstructive pulmonary disease) Status: Chronic Assessment & Plan: She is on chronic treatment with oxygen. She was on Spiriva but it appears this was discontinued per [facility] records. (4) Breast cancer, right Status: Resolved Assessment & Plan: She was on chronic treatment with Femara which has been discontinued. She also has a history of mastectomy. (5) Elevated LFTs Status: Acute Assessment & Plan: This appears to be a long standing issue dating back to 2013. Will periodically check CMP. Time Spent on Plan of Care: < 30 min Exam Sepsis Risk: No Definite Risk Problem Qualifiers (1) Femoral neck fracture: Encounter type: initial encounter Fracture type: closed Laterality: right Qualified Codes: S72.001A - Fracture of unspecified part of neck of right femur, initial encounter for closed fracture LG FLOYD MD Jun 23, 2018 09:55
--- NOTE | 2018-06-23 11:19 | RADIOLOGY IMAGING REPORT ---
FACILITY: [facility] PATIENT NAME: Mariaelena Humphreys : 1945 MR: [id number] V: [id number] EXAM DATE: ORDERING PHYSICIAN: JABIER ARREDONDO TECHNOLOGIST: Location: [facility] [place] Patient: Mariaelena Humphreys : 1945 Visit/Account:[id number] Date of Sevice: 06/23/2018 Technique: C-ARM FLUORO 1 HR HISTORY: HIP PINNING Comparison studies: Right hip radiographs 06/22/2018 FINDINGS: 3 operative fluoroscopic images were obtained of the right hip. Multiple cortical screws tr averse an acute fracture involving the right femoral neck. There is gross anatomic alignment. Fluoroscopy time: 65.5 seconds IMPRESSION: 1. Intraoperative fluoroscopic radiograph as described above. Please see operative report for furthe r details. Report Dictated By: Jovan Williamson DO at 06/23/2018 11:12 AM Report E-Signed By: Jovan Williamson DO at 06/23/2018 11:16 AM WSN:[id number]
[2018-06-23] MEDS ORDERED: ONDANSETRON 4 MG/2 ML VIAL IVP PRN (12:20)
[2018-06-23] MEDS ORDERED: MAGNESIUM CITRATE 300 ML BTL PO PRN (12:20)
[2018-06-23] MEDS ORDERED: PROMETHAZINE 25 MG/ML 1 ML AMP IVP PRN (12:20)
[2018-06-23] MEDS ORDERED: KCL/D5LR 20 MEQ/1000 ML PREMIX 1,000 ML IV PRN (12:20)
[2018-06-23] MEDS ORDERED: ACETAMINOPHEN 500 MG TAB PO PRN (12:20)
[2018-06-23] MEDS ORDERED: BISACODYL 10 MG SUPP PR PRN (12:20)
[2018-06-23] MEDS ORDERED: FLUSH 10 ML SYR IVP PRN (12:20)
[2018-06-23] MEDS ORDERED: MAGNESIUM HYDROXIDE* 30ML UDCP PO PRN (12:20)
[2018-06-23] MEDS ORDERED: diphenhydrAMINE 25 MG CAP PO PRN (12:20)
--- NOTE | 2018-06-23 13:51 | Miscellaneous Provider Note ---
Miscellaneous Provider Note Note Pt. seen post-op. Sleepy. VSS. Will monitor. LG FLOYD MD Jun 23, 2018 13:51
[2018-06-23] MEDS: KETOROLAC 30 MG/ML VIAL IVP PRN ×2 (14:09→22:36)
--- NOTE | 2018-06-23 15:11 | OPERATIVE REPORT 1 ---
EVENT DATE: June 23, 2018 SURGEON: Pedro Arce MD ANESTHESIOLOGIST: Young García MD ANESTHESIA: General. RHEUMATOLOGY SPECIALIST: NINO Arvizu PREOPERATIVE DIAGNOSIS Right femoral neck fracture. POSTOPERATIVE DIAGNOSIS Right femoral neck fracture. PROCEDURE PERFORMED Percutaneous pinning of the right femoral neck. ESTIMATED BLOOD LOSS 30 to 40 mL DESCRIPTION OF OPERATION Patient brought into the operating room, placed on a traction table, and had the right leg placed in traction and internal rotation and the left leg flexed, abducted, and externally rotated. Once we were able to get the position correct, I brought fluoroscopy in. AP and lateral were taken, and with some traction, more internal rotation, and abduction, we were able to reduce the fracture without any difficulty. Once we had it reduced both on the AP and the lateral plane, we prepped using ChloraPrep, and then a large Ioban shower curtain drape was then placed. Once that was in place, we made an incision under fluoroscopy directly below the greater trochanter. Skin was incised sharply and taken down to the subcutaneous tissue. The subcutaneous tissue was bluntly dissected down to the IT band. The IT band was sharply dissected, and we were able to get underneath the muscle directly to the bone. Once that was done, I then took one pin, placed a large pin all the way through the inferior middle section of the femoral neck under fluoroscopy, again using AP and laterals to get the correct positioning. Once that was done, I then used the gaveling gun guide to place one anterior and posterior, and both of them being superior from there. Once I had those pins directly in the correct position and checked under fluoroscopy, I measured all of the pins and then drilled just the outer cortex and part of the femoral neck. Then, we placed three partially threaded Synthes cannulated screws across without any difficulty getting good compression on the superior screws with minimal compression on the inferior screw. I did at this point take traction off, created a little bit of compression at the fracture site. We then took x-rays again, found to have no change in the position. We closed using 2-0 nylon and 3-0 Monocryl with agnes, Adaptic, 4 x 4's, and a big dressing. Patient went to Recovery. No complications. LUDWIG
[2018-06-23] MEDS: ceFAZolin(*) 1 GM VIAL 1 GM in NS(*) 0.9% 100 ML ADDVANT BAG 100 ML IVPB SCH (17:50)
[2018-06-23] MEDS: KCL/D5LR 20 MEQ/1000 ML PREMIX 1,000 ML IV SCH (20:39)
[2018-06-24] MEDS: ceFAZolin(*) 1 GM VIAL 1 GM in NS(*) 0.9% 100 ML ADDVANT BAG 100 ML IVPB SCH ×2 (03:07→10:58)
[2018-06-24] MEDS: TIOTROPIUM BROM INH 18 MCG/CAP INH SCH (05:39)
[2018-06-24] MEDS: LEVOTHYROXINE SOD 0.075 MG TAB PO SCH (06:00)
[2018-06-24] MEDS: KCL/D5LR 20 MEQ/1000 ML PREMIX 1,000 ML IV SCH (06:32)
[2018-06-24 06:50] LABS: PLATELET COUNT, AUTOMATED 127 K/uL (150-450)
[2018-06-24 07:17] VITALS: BP 126/68
--- NOTE | 2018-06-24 08:05 | Hospitalist Progress Note ---
Subjective Progress Notes Subjective 72F admitted for hip Fx. Now status post repair, sleeping comfortably. VIVIEN overnight, plan to d/c to [facility] early next week. Patient Complains of: Cardiovascular: No: Chest Pain Respiratory: No: Cough Physical Exam Vital Signs Date Time Temp Pulse Resp B/P (MAP) Pulse Ox O2 Delivery O2 Flow Rate FiO2 06/24/18 07:20 95 Nasal Cannula 2.0 06/24/18 07:17 98.4 68 16 126/68 (87) Intake and Output 06/24/18 06:59 Intake Total 4747.5 ml Output Total 500 ml Balance 4247.5 ml Intake Oral 30 ml IV Total 4717.5 ml Output Urine Total 500 ml General Appearance: No Acute Distress, Afebrile Neuro: No Gross deficits ENT: Normal Neck: No Masses Cardiovascular: Normal Rhythm & Peripheral Pulses Respiratory: No Respiratory Distress (2L nc) Extremities: Soft and Non Tender, Warm, Pulses Integumentary: Skin Intact without Lesion / Mass Result Diagram: 06/24/1852106/24/18521 Assessment and Plan Problems: (1) Femoral neck fracture Status: Acute Assessment & Plan: Status post repair with Dr Arce on 06.23.2018. PT/OT to [facility] on Monday. (2) Schizophrenia Status: Chronic Assessment & Plan: She is on chronic treatment with clozapine, bupropion, gabapentin, and sertraline. (3) COPD (chronic obstructive pulmonary disease) Status: Chronic Assessment & Plan: She is on chronic treatment with oxygen. She was on Spiriva but it appears this was discontinued per [facility] records. (4) Breast cancer, right Status: Resolved Assessment & Plan: She was on chronic treatment with Femara which has been discontinued. She also has a history of mastectomy. (5) Elevated LFTs Status: Acute Assessment & Plan: This appears to be a long standing issue dating back to 2013. Will periodically check CMP. Exam Sepsis Risk: No Definite Risk Problem Qualifiers (1) Femoral neck fracture: Encounter type: initial encounter Fracture type: closed Laterality: right Qualified Codes: S72.001A - Fracture of unspecified part of neck of right femur, initial encounter for closed fracture DALTON BROWN DO Jun 24, 2018 08:05
[2018-06-24] MEDS ORDERED: INFLUENZA VIRUS VAC 0.5ML SYR IM ONLY ONE (09:00)
[2018-06-24] MEDS: ASPIRIN 325 MG ENTERIC COATED PO SCH (09:00)
[2018-06-24] MEDS: SERTRALINE HCL 50 MG TAB PO SCH (09:00)
[2018-06-24] MEDS: GABAPENTIN 300 MG CAP PO SCH ×3 (09:00→21:06)
[2018-06-24] MEDS: CLOZAPINE 100 MG TABLET PO SCH ×2 (09:00→21:07)
[2018-06-24] MEDS: PANTOPRAZOLE SOD 40 MG TABEC PO SCH (09:00)
[2018-06-24 12:10] VITALS: BP 105/65
[2018-06-24 14:46] VITALS: BP 120/63
[2018-06-24] MEDS ORDERED: DLR(*) 1000 ML BAG 1,000 ML IV PRN (14:55)
[2018-06-24] MEDS ORDERED: KETOROLAC 30 MG/ML VIAL IVP PRN (17:25)
[2018-06-24] MEDS: APAP/HYDROCODONE 325/5 TAB PO PRN (17:52)
[2018-06-24 19:26] VITALS: BP 121/66
[2018-06-24 22:28] VITALS: BP 118/70
[2018-06-25 03:10] VITALS: BP 110/87
[2018-06-25] MEDS: TIOTROPIUM BROM INH 18 MCG/CAP INH SCH (05:19)
[2018-06-25] MEDS: LEVOTHYROXINE SOD 0.075 MG TAB PO SCH (05:53)
[2018-06-25] MEDS: APAP/HYDROCODONE 325/5 TAB PO PRN (05:53)
[2018-06-25 07:11] VITALS: BP 122/87
[2018-06-25] MEDS ORDERED: ASPI-764 PO (09:00)
[2018-06-25] MEDS ORDERED: TIO18R INH (09:00)
[2018-06-25] MEDS ORDERED: TRAM-420 PO (09:00)
[2018-06-25] MEDS: ASPIRIN 325 MG ENTERIC COATED PO SCH (09:27)
[2018-06-25] MEDS: SERTRALINE HCL 50 MG TAB PO SCH (09:27)
[2018-06-25] MEDS: PANTOPRAZOLE SOD 40 MG TABEC PO SCH (09:27)
[2018-06-25] MEDS: CLOZAPINE 100 MG TABLET PO SCH (09:28)
[2018-06-25] MEDS: GABAPENTIN 300 MG CAP PO SCH (09:28)
--- NOTE | 2018-06-25 10:48 | Hospitalist Depart ---
Discharge Summary Reason for Hosp/Final Diag: (1) Femoral neck fracture Status: Acute Hospital Course & Plan: Status post repair with Dr Arce on 06.23.2018. She will need to continue to work with PT/OT. She plans to return to [facility] today. (2) Schizophrenia Status: Chronic Hospital Course & Plan: She is on chronic treatment with clozapine, bupropion, gabapentin, and sertraline. (3) COPD (chronic obstructive pulmonary disease) Status: Chronic Hospital Course & Plan: She is on chronic treatment with oxygen. She was on Spiriva but it appears this was discontinued per [facility] records. (4) Breast cancer, right Status: Resolved Hospital Course & Plan: She was on chronic treatment with Femara which has been discontinued. She also has a history of mastectomy. (5) Elevated LFTs Status: Acute Hospital Course & Plan: This appears to be a long standing issue dating back to 2013. Departure Latest Vital Signs Vital Signs 06/25/18 06/25/18 05:20 07:11 Temp 97.9 Pulse 96 Resp 16 B/P (MAP) 122/87 (99) Pulse Ox 95 O2 Delivery Nasal Cannula O2 Flow Rate 4.0 Weight (Pounds): 155 Weight (Ounces): 6.0 Result Diagram: 06/24/1852106/24/18521 Condition: Improved Discharge: Snf PT/OT Follow Up For: PT Evaluation and Treat, ST Evaluation and Treat, OT Evaluation and Treat Discharge Instructions Home Meds Active Scripts Aspirin (ASPIRIN EC) 325 Mg Tablet., 325 MG PO QDAY, #30 TAB Prov:CARLOS ACEVEDO [facility] 06/25/18 Tiotropium [place] (SPIRIVA) 18 Mcg/Cap Inh, 18 MCG INH QDAYR, #1 INH Prov:CARLOS ACEVEDO [facility] 06/25/18 Tramadol Hcl (TRAMADOL HCL) 50 Mg Tablet, 50 MG PO Q6H PRN for PAIN, #56 TAB Prov:CARLOS ACEVEDO [facility] 06/25/18 Reported Medications Clozapine (CLOZAPINE) 100 Mg Tab, 1 TAB PO BID for schizophrenia 06/22/18 Nystatin 100,000 Unit/Gm Top Powder (NYSTATIN 100,000 UNIT/GM TOP POWDER) 15 Gm Powder, 15 GM TP BID, TUBE apply to affected areas topically as needed for yeast rash twice daily until resolved. 06/22/18 Sertraline Hcl (SERTRALINE HCL) 50 Mg Tablet, 1 TAB PO QDAY, TAB 06/22/18 Acetaminophen (TYLENOL EXTRA STRENGTH) 500 Mg Tablet, 500 MG PO Q4H PRN for PAIN, TAB 09/18/17 Levothyroxine Sodium (LEVOTHYROXINE SODIUM) 75 Mcg Tablet, 75 MCG PO QAM, TAB 09/18/17 Gabapentin (Neurontin) 300 Mg Cap, 300 MG PO TID, 0 Refills 02/08/11 Discontinued Reported Medications Tiotropium [place] (SPIRIVA) 18 Mcg/Cap Inh, 18 MCG INH PRN, INH 10/26/17 Omeprazole (OMEPRAZOLE) 20 Mg Capsule.dr, 1 CAP PO QDAY, CAP 10/26/17 Memantine HCl 10 MG (Memantine HCl 10 MG) 10 Mg Tablet, 10 MG PO BID 10/26/17 Meloxicam (MOBIC) 15 Mg Tablet, 15 MG PO QDAY 10/26/17 Letrozole (FEMARA) 2.5 Mg Tab, 2.5 MG PO DAILY, TAB 10/26/17 Cholecalciferol (Vitamin D3) (VITAMIN D3) 1,000 Unit Tablet, 1000 UNIT PO DAILY, TAB 10/26/17 Bupropion Hcl (BUPROPION XL) 150 Mg Tab.er.24h, 150 MG PO QDAY, #10 TAB 10/26/17 Azelastine Hcl (AZELASTINE HCL) 6 Ml Drops, 6 ML OP 10/26/17 Sertraline Hcl (SERTRALINE HCL) 25 Mg Tablet, 1 TAB PO QDAY, TAB 09/18/17 Clozapine (Clozapine) 50 Mg Tablet, 100 MG PO BID, 0 Refills 02/08/11 Discontinued Scripts Hydrocodone Bit/Acetaminophen (NORCO 5-325 TABLET) 1 Each Tablet, 1 EACH PO Q4H PRN for PAIN, #20 TAB Prov:KENJI SCHMITZ MD 10/31/17 Diet: Regular Activity: With Walker Copies to: FRANDY SOTO MD ; Venous Thromboembolism Antithrombotics Is Pt On Any Antithrombotics?: No Problem Qualifiers (1) Femoral neck fracture: Encounter type: initial encounter Fracture type: closed Laterality: right Qualified Codes: S72.001A - Fracture of unspecified part of neck of right femur, initial encounter for closed fracture CARLOS ACEVEDO [employer] Jun 25, 2018 10:48
== END 2018-06-25 11:40 | DRG 482 ==
LOC: ER 15:15 → MED 16:33
PROVIDERS: ADMIT Family Medicine; ATTEND Family Medicine
PROC: 0QS634Z Reposition Right Upper Femur with Internal Fixation Device, Percutaneous Approach (ICD-10-PCS; principal; 2018-06-22)
DX: S72.321A Displaced transverse fracture of shaft of right femur, initial encounter for closed fracture (principal); W18.30XA Fall on same level, unspecified, initial encounter; Y92.122 Bedroom in nursing home as the place of occurrence of the external cause; Y99.8 Other external cause status; F03.90 Unspecified dementia, unspecified severity, without behavioral disturbance, psychotic disturbance, mood disturbance, and anxiety; F20.9 Schizophrenia, unspecified; E03.9 Hypothyroidism, unspecified; J44.9 Chronic obstructive pulmonary disease, unspecified; Z88.0 Allergy status to penicillin; Z85.3 Personal history of malignant neoplasm of breast; Z99.81 Dependence on supplemental oxygen; Z90.49 Acquired absence of other specified parts of digestive tract; Z90.11 Acquired absence of right breast and nipple
CPT/HCPCS: 36415; 71045; 76000; 81001; 82040; 82247; 82310; 82374; 82435; 82465; 82565; 82947; 83718; 84075; 84132; 84155; 84295; 84436; 84450; 84460; 84478; 84520; 85025; 85610; 85730; 87088; 93005; 94640; 97163; C1758; C1769; J0690; J1100; J1885; J2001; J2270; J2405; J2704; J2795; J3010; J3480; J3490; J3535; J7050

== ENCOUNTER → 2018-06-22 | Outpatient (CLI) | payer MEDICARE, MEDICAID ==
[2014-08-06 13:09] VITALS: BMI 33.0
[~2018-06-22] MED LIST changes: +ASPI-764 PO; -HYDR-4309 PO; +HYDR-653 PO; +NYST15PO4 TP; +SERT-184 PO
[2018-06-22 12:02] LABS: PLATELET COUNT, AUTOMATED 139 K/uL (150-450)
[2018-06-22 12:22] LABS: LDL CHOLESTEROL 53 mg/dl
== END ==
LOC: LAB 11:33
PROVIDERS: ATTEND Family Medicine
DX: F20.9 Schizophrenia, unspecified (principal); F31.9 Bipolar disorder, unspecified; M25.552 Pain in left hip; E03.9 Hypothyroidism, unspecified; F32.9 Major depressive disorder, single episode, unspecified; K21.9 Gastro-esophageal reflux disease without esophagitis; L57.0 Actinic keratosis; F02.81 Dementia in other diseases classified elsewhere, unspecified severity, with behavioral disturbance; L03.90 Cellulitis, unspecified; Z90.11 Acquired absence of right breast and nipple; M15.9 Polyosteoarthritis, unspecified; F91.9 Conduct disorder, unspecified; C44.90 Unspecified malignant neoplasm of skin, unspecified; J44.1 Chronic obstructive pulmonary disease with (acute) exacerbation; M12.9 Arthropathy, unspecified; S23.9XXA Sprain of unspecified parts of thorax, initial encounter; Z85.3 Personal history of malignant neoplasm of breast; M54.30 Sciatica, unspecified side; Z79.891 Long term (current) use of opiate analgesic; F03.90 Unspecified dementia, unspecified severity, without behavioral disturbance, psychotic disturbance, mood disturbance, and anxiety
CPT/HCPCS: 36415; 82310; 82374; 82435; 82465; 82565; 82947; 83718; 84132; 84295; 84436; 84478; 84520; 85025

== ENCOUNTER → 2018-06-25 | Outpatient (CLI) | payer MEDICARE, MEDICAID ==
[2018-06-23 13:07] VITALS: BMI 29.3
[~2018-06-25] MED LIST changes: +ASPI-764 PO; +NYST15PO4 TP; +SERT-184 PO
== END ==
LOC: AMB 11:26
PROVIDERS: ATTEND Nurse Practitioner
DX: S72.001A Fracture of unspecified part of neck of right femur, initial encounter for closed fracture (principal); F03.90 Unspecified dementia, unspecified severity, without behavioral disturbance, psychotic disturbance, mood disturbance, and anxiety; R40.20 Unspecified coma
CPT/HCPCS: A0425; A0428

== ENCOUNTER → 2018-07-05 | Outpatient (REF) | payer MEDICARE, MEDICAID ==
[2018-06-23 13:07] VITALS: BMI 29.3
[2018-07-05 06:58] LABS: PLATELET COUNT, AUTOMATED 285 K/uL (150-450)
== END ==
LOC: ZZLCC 06:49
PROVIDERS: ATTEND Family Medicine
DX: F20.9 Schizophrenia, unspecified (principal); F31.9 Bipolar disorder, unspecified; L57.0 Actinic keratosis; E03.9 Hypothyroidism, unspecified; Z85.3 Personal history of malignant neoplasm of breast
CPT/HCPCS: 85025

== ENCOUNTER → 2018-07-24 | Outpatient (REF) | payer MEDICARE, MEDICAID ==
[2018-06-23 13:07] VITALS: BMI 29.3
[2018-07-24 09:38] LABS: PLATELET COUNT, AUTOMATED 226 K/uL (150-450)
== END ==
LOC: ZZLCC 09:00
PROVIDERS: ATTEND Family Medicine
DX: Z51.81 Encounter for therapeutic drug level monitoring (principal); Z79.899 Other long term (current) drug therapy; F20.9 Schizophrenia, unspecified; F31.9 Bipolar disorder, unspecified; F02.81 Dementia in other diseases classified elsewhere, unspecified severity, with behavioral disturbance; E03.9 Hypothyroidism, unspecified; L57.0 Actinic keratosis; Z85.3 Personal history of malignant neoplasm of breast
CPT/HCPCS: 85025

== ENCOUNTER → 2018-08-24 | Outpatient (REF) | payer MEDICARE, MEDICAID ==
[2018-06-23 13:07] VITALS: BMI 29.3
[2018-08-24 08:05] LABS: PLATELET COUNT, AUTOMATED 199 K/uL (150-450)
== END ==
LOC: ZZLCC 07:42
PROVIDERS: ATTEND Family Medicine
DX: E03.9 Hypothyroidism, unspecified (principal); Z85.3 Personal history of malignant neoplasm of breast; L57.0 Actinic keratosis; Z79.899 Other long term (current) drug therapy
CPT/HCPCS: 85025

== ENCOUNTER → 2018-09-24 | Outpatient (REF) | payer OTHER, MEDICARE, MEDICAID ==
[2018-06-23 13:07] VITALS: BMI 29.3
[2018-09-24 12:13] LABS: PLATELET COUNT, AUTOMATED 203 K/uL (150-450)
== END ==
LOC: ZZLCC 11:46
PROVIDERS: ATTEND Family Medicine
DX: S72.001A Fracture of unspecified part of neck of right femur, initial encounter for closed fracture (principal); M62.81 Muscle weakness (generalized); R26.2 Difficulty in walking, not elsewhere classified; R94.5 Abnormal results of liver function studies; C44.90 Unspecified malignant neoplasm of skin, unspecified; F03.90 Unspecified dementia, unspecified severity, without behavioral disturbance, psychotic disturbance, mood disturbance, and anxiety; L03.90 Cellulitis, unspecified; M15.9 Polyosteoarthritis, unspecified; M19.90 Unspecified osteoarthritis, unspecified site; Z90.11 Acquired absence of right breast and nipple; F02.81 Dementia in other diseases classified elsewhere, unspecified severity, with behavioral disturbance; F91.9 Conduct disorder, unspecified; E03.9 Hypothyroidism, unspecified; F20.9 Schizophrenia, unspecified; F31.9 Bipolar disorder, unspecified; F32.9 Major depressive disorder, single episode, unspecified; J44.9 Chronic obstructive pulmonary disease, unspecified; K21.9 Gastro-esophageal reflux disease without esophagitis; L57.0 Actinic keratosis; M12.9 Arthropathy, unspecified; M54.30 Sciatica, unspecified side; S23.9XXA Sprain of unspecified parts of thorax, initial encounter; Z79.891 Long term (current) use of opiate analgesic; Z85.3 Personal history of malignant neoplasm of breast; Z66 Do not resuscitate
CPT/HCPCS: 85025

== ENCOUNTER → 2018-10-25 | Outpatient (REF) | payer MEDICARE, MEDICAID ==
[2018-06-23 13:07] VITALS: BMI 29.3
== END ==
LOC: ZZLCC 09:50
PROVIDERS: ATTEND Family Medicine
DX: J44.1 Chronic obstructive pulmonary disease with (acute) exacerbation (principal); L57.0 Actinic keratosis; F31.9 Bipolar disorder, unspecified; Z85.3 Personal history of malignant neoplasm of breast; Z79.891 Long term (current) use of opiate analgesic
CPT/HCPCS: 85027

== ENCOUNTER → 2018-11-27 | Outpatient (REF) | payer MEDICARE, MEDICAID ==
[2018-06-23 13:07] VITALS: BMI 29.3
[2018-11-27 09:29] LABS: PLATELET COUNT, AUTOMATED 219 K/uL (150-450)
== END ==
LOC: ZZLCC 08:48
PROVIDERS: ATTEND Family Medicine
DX: E03.9 Hypothyroidism, unspecified (principal); L57.0 Actinic keratosis; Z85.3 Personal history of malignant neoplasm of breast; Z79.899 Other long term (current) drug therapy
CPT/HCPCS: 85025

== ENCOUNTER → 2018-12-26 | Outpatient (REF) | payer MEDICARE, MEDICAID ==
[2018-06-23 13:07] VITALS: BMI 29.3
[2018-12-26 06:37] LABS: PLATELET COUNT, AUTOMATED 167 K/uL (150-450)
== END ==
LOC: ZZLCC 06:15
PROVIDERS: ATTEND Family Medicine
DX: E03.9 Hypothyroidism, unspecified (principal); L57.0 Actinic keratosis; Z85.3 Personal history of malignant neoplasm of breast
CPT/HCPCS: 85025

== ENCOUNTER → 2019-01-09 | Outpatient (REF) | payer MEDICARE, MEDICAID ==
[2018-06-23 13:07] VITALS: BMI 29.3
[2019-01-09 10:04] LABS: LDL CHOLESTEROL 47 mg/dl
== END ==
LOC: ZZLCC 09:36
PROVIDERS: ATTEND Family Medicine
DX: E03.9 Hypothyroidism, unspecified (principal); L57.0 Actinic keratosis; Z85.3 Personal history of malignant neoplasm of breast
CPT/HCPCS: 82310; 82374; 82435; 82465; 82565; 82947; 83718; 84132; 84295; 84436; 84478; 84520

== ENCOUNTER → 2019-01-21 | Outpatient (REF) | payer MEDICARE, MEDICAID ==
[2018-06-23 13:07] VITALS: BMI 29.3
[2019-01-21 07:11] LABS: PLATELET COUNT, AUTOMATED 222 K/uL (150-450)
== END ==
LOC: ZZLCC 06:39
PROVIDERS: ATTEND Family Medicine
DX: E03.9 Hypothyroidism, unspecified (principal); L57.0 Actinic keratosis; Z79.899 Other long term (current) drug therapy; Z85.3 Personal history of malignant neoplasm of breast
CPT/HCPCS: 85025

== ENCOUNTER → 2019-02-22 | Outpatient (REF) | payer MEDICARE, MEDICAID ==
[2018-06-23 13:07] VITALS: BMI 29.3
[~2019-02-22] MED LIST changes: -OMEP-125 PO; +OMEP-126 PO; +[UNRECOGNIZED DRUG - CODE] PO; -[UNRECOGNIZED DRUG - CODE] PO
[2019-02-22 12:43] LABS: PLATELET COUNT, AUTOMATED 26 K/uL (150-450)
== END ==
LOC: ZZLCC 12:08
PROVIDERS: ATTEND Family Medicine
DX: E03.9 Hypothyroidism, unspecified (principal); L57.0 Actinic keratosis; Z85.3 Personal history of malignant neoplasm of breast
CPT/HCPCS: 85025

== ENCOUNTER → 2019-03-23 | Outpatient (REF) | payer MEDICARE, MEDICAID ==
[2018-06-23 13:07] VITALS: BMI 29.3
[2019-03-23 09:15] LABS: PLATELET COUNT, AUTOMATED 195 K/uL (150-450)
== END ==
LOC: ZZLCC 07:34
PROVIDERS: ATTEND Family Medicine
DX: E03.9 Hypothyroidism, unspecified (principal); L57.0 Actinic keratosis; Z85.3 Personal history of malignant neoplasm of breast; Z79.899 Other long term (current) drug therapy
CPT/HCPCS: 85025

== ENCOUNTER → 2019-04-23 | Outpatient (REF) | payer MEDICARE, MEDICAID ==
[2018-06-23 13:07] VITALS: BMI 29.3
[2019-04-23 07:17] LABS: PLATELET COUNT, AUTOMATED 186 K/uL (150-450)
== END ==
LOC: ZZLCC 06:55
PROVIDERS: ATTEND Family Medicine
DX: E03.9 Hypothyroidism, unspecified (principal); L57.0 Actinic keratosis; Z85.3 Personal history of malignant neoplasm of breast; Z79.899 Other long term (current) drug therapy
CPT/HCPCS: 85025